=== PATIENT | male | born 1975 | race Caucasian/White ===

== ENCOUNTER 2016-11-14 18:06 | Emergency (ER) | payer BC ==
[~2016-11-14] VITALS: Ht 185.4 cm; Wt 116.0 kg
[~2016-11-14 18:06] MED LIST: AC325T PO; ACET650T2 PO; ALBU8.5H4 IH; CEPH500C PO; CYCL10TA45 PO; GUAI5SYR PO; HYDR-3702 PO; HYDR-3754 PO; HYDR-3811 PO; HYDR-3881 PO; HYDR-3882 PO; IBUP800T26 PO; LEVO750T39 PO; LORA10TA7 PO; LSNP10T PO; METH750T3 PO; NAPR500T8 PO; OMEP20TA PO; OMEP40CA36 PO; ONDA4TAB8 PO; PRCD5U PO; PRED50TA PO; PRM25T PO; PROM25TA5 PO; TRM50T PO; [UNRECOGNIZED DRUG - CODE] PO
--- NOTE | 2016-11-14 18:48 | NUR ---
REPORT GIVEN & CARE TSF TO JESSICA GOODMAN. CL
[2016-11-14 19:08] VITALS: BP 141/67
--- NOTE | 2016-11-15 07:28 | Diagnostic Imaging Report ---
INDICATION: Trauma, pain. TECHNIQUE: 3 views of the left hand. CORRELATION STUDY: None FINDINGS: There is slight deformity suggested about the distal phalanx of the little finger on the lateral projection only. This may be projectional. Definitive fracture line not visualized. Remaining osseous structures intact. Joint spaces overall are fairly well-maintained. IMPRESSION: 1. Deformity distal phalanx little finger. Definitive fracture is not visualized and may be projectional. However, clinical correlation with symptoms recommended. Remaining osseous structures intact and unremarkable. Dictated by: Dictated on workstation # [id number]
== END 2016-11-14 19:09 | disposition home or self-care (01) ==
LOC: ED 18:07
DX: S60.222A Contusion of left hand, initial encounter (principal); W22.09XA Striking against other stationary object, initial encounter; Y93.89 Activity, other specified; Y92.89 Other specified places as the place of occurrence of the external cause; Y99.0 Civilian activity done for income or pay
CPT/HCPCS: 73130; 99282

== ENCOUNTER 2017-01-10 06:48 | Emergency (ER) | payer BC ==
[~2017-01-10] VITALS: Ht 185.4 cm; Wt 121.0 kg
[2017-01-10 07:09] VITALS: BP 131/88
[2017-01-10] MEDS ORDERED: ASPIRIN 81 MG CHEW (CHILDREN'S ASA) PO ONE (07:10)
[2017-01-10 07:15] LABS: BASOPHILS % (AUTO) 0 % (0-2); EOSINOPHILS % (AUTO) 1 % (0-4); LYMPHOCYTES # (AUTO) 1.1 X10^3; MEAN CORPUSCULAR VOLUME 90 FL (80-100); MEAN PLATELET VOLUME 9.6 FL (6.0-9.5); MONOCYTES # (AUTO) 0.9 X10^3; MONOCYTES % (AUTO) 13 % (3-11); NEUTROPHILS # (AUTO) 4.7 X10^3; NEUTROPHILS % (AUTO) 70 % (51-67); PLATELET COUNT 141 10^3uL (150-450); WHITE BLOOD COUNT 6.74 10^3uL (4.0-11.0)
[2017-01-10] MEDS ORDERED: ONDANSETRON 2 MG/ML (Z0FRAN) 2 ML VIAL IV ONE (07:15)
[2017-01-10] MEDS ORDERED: SODIUM CHLORIDE FLUSH 10 ML SYR IV PRN (07:15)
[2017-01-10] MEDS ORDERED: SODIUM CHLORIDE FLUSH 3 ML SYR IV PRN (07:15)
[2017-01-10] MEDS: NITROGLYCERIN SUBLINGUAL 0.4 MG (NITROQUICK) TABLET SL PRN ×2 (07:21→07:31)
[2017-01-10 07:26] LABS: ALBUMIN 4.2 g/dL (3.4-5.0); ALKALINE PHOSPHATASE 94 U/L (38-126); ANION GAP 12.8 MEQ/L (3-15); BUN/CREATININE RATIO 11 (10-20); CALCULATED IONIZED CALCIUM 3.8 mg/dL (3.8-4.6); TOTAL PROTEIN 7.4 g/dL (6.4-8.5)
[2017-01-10] MEDS ORDERED: HYDROmorphone 1 MG/ML (DILAUDID) SYRINGE IV ONE ×2 (07:40→08:30)
[2017-01-10 07:47] LABS: MEAN CORPUSCULAR HEMOGLOBIN 33.3 PG (26.0-34.0); MEAN CORPUSCULAR HGB CONC 37.1 g/dL (31.0-37.0)
[2017-01-10] MEDS ORDERED: ENOXAPARIN 120 MG/0.8 ML (LOVENOX) SYR SC ONE (08:10)
--- NOTE | 2017-01-10 08:43 | NUR ---
pt has been sleeping on and off since admit to er, pain only decreases after dilaudid given
--- NOTE | 2017-01-10 09:40 | NUR ---
EMS IN ROOM
== END 2017-01-10 09:40 | disposition short-term general hospital (02) ==
LOC: ED 06:49
DX: R07.9 Chest pain, unspecified (principal)
CPT/HCPCS: 36415; 71010; 80053; 84484; 85025; 85379; 85610; 85730; 93005; 96361; 96372; 96374; 96375; 99285; J1170; J1650; J2405; J7030; 93010

== ENCOUNTER → 2017-01-10 | Outpatient (CLI) | payer BC | LOC: EMS 09:30 | PROVIDERS: ATTEND Emergency Medicine | DX: R07.89 Other chest pain (principal); R11.0 Nausea ==